=== PATIENT | female | born 1965 | race Caucasian/White ===

== ENCOUNTER → 2020-10-07 | Outpatient (CLI) | payer OTHER ==
[2020-10-07 07:17] LABS: CREATININE 0.9 mg/dL (0.6-1.3)
== END ==
LOC: M.LAB 06:50 → M.CT 08:00
PROVIDERS: ATTEND Internal Medicine Cardiovascular Disease
DX: Z01.812 Encounter for preprocedural laboratory examination (principal); K76.0 Fatty (change of) liver, not elsewhere classified; I28.1 Aneurysm of pulmonary artery; I10 Essential (primary) hypertension; Q23.1 Congenital insufficiency of aortic valve

== ENCOUNTER → 2020-10-23 | Outpatient (CLI) | payer OTHER ==
[2020-10-23] VITALS (16 sets, daily range): BP systolic 98–153; BP diastolic 58–111
[~2020-10-23] VITALS: Ht 157.5 cm; Wt 86.2 kg
[~2020-10-23] MED LIST: ADVAIR 100-501 EACH INH; LEXAPRO 10 MG T10 M1 PO; LOSARTAN-HCTZ1 EAC3 PO
--- NOTE | 2020-10-23 15:17 | TEE ---
[place] [id number] TRANSESOPHAGEAL ECHOCARDIOGRAM Name: ALE JHA Room: [facility]#: [id number] Admission: 10/23/20 Attend Phys: Gregory Estes, Discharge: Date of : 67 Date of Service: 10/23/20 1516 Report #: [id number] THIS REPORT FOR: cc: Nahed Gallegos MD, Sarah Beth MD Liston, Michael J. MD [facility] ~ APPROVED REPORT Study performed: 10/23/2020 12:25:17 EXAM: Transesophageal Echocardiogram Patient Location: Out-Patient Status: routine BSA: 1.87 HR: 66 bpm BP: 112/79 mmHg Rhythm: NSR Other Information Study Quality: Good Indications valvular murmur Echo Enhancing Agent Indication: Rule out Shunt Agent(s) / Amount(s) Used: Agitated Saline 10 cc Procedure After obtaining informed consent, patient underwent transesophageal echo in the [facility]. Type of Sedation : Conscious Sedation Sedation was administered by Laura Gamez RN. Sedation start time: 1232 Case end Time: 1251 Sedation was achieved intravenously with: Versed (3) Fentanyl (75) Transesophageal probe was inserted and advanced into esophagus without difficulty by Gregory Estes MD, FAC. Echo enhancement indication: R/O Septal defect. Echo enhancement agent administered: Agitated Saline The JESSICA was performed without complications. Throughout the procedure, the blood pressure, pulse oximetry, cardiac rhythm, and rate were monitored. The patient tolerated the procedure without adverse [place] [id number] TRANSESOPHAGEAL ECHOCARDIOGRAM Name: ABHIJEETALEKhadra ROTHMAN Room: [facility]#: [id number] Admission: 10/23/20 Attend Phys: Gregory Estes, Discharge: Date of : 67 Date of Service: 10/23/20 1516 Report #: [id number] from conscious sedation was uneventful and vital signs were stable. Left Ventricle The left ventricle is normal size. There is normal LV segmental wall motion. Moderate basal septal hypertrophy is present. Left ventricular systolic function is normal. LVEF is 65-70%. Right Ventricle The right ventricle is normal size. The right ventricular systolic function is normal. Atria The left atrium size is normal. No thrombus is visualized in the left atrium or appendage. The interatrial septum is intact with no evidence for an atrial septal defect. The right atrium size is normal. Aortic Valve The aortic valve is normal in structure. No aortic regurgitation is present. There is no aortic valvular stenosis. Mitral Valve The mitral valve is normal in structure. Trace mitral regurgitation. No evidence of mitral valve stenosis. Tricuspid Valve The tricuspid valve is normal in structure. There is no tricuspid valve regurgitation noted. Pulmonic Valve The pulmonary valve is normal in structure. There is no pulmonic valvular regurgitation. Great Vessels The aortic root is normal in size. Pericardium There is no pericardial effusion. <Conclusion> The left ventricle is normal size. Moderate basal septal hypertrophy is present. Left ventricular systolic function is normal. LVEF is 65-70%. There is normal LV [place] [id number] TRANSESOPHAGEAL ECHOCARDIOGRAM Name: ALE JHA Room: [facility]#: [id number] Admission: 10/23/20 Attend Phys: Gregory Estes, Discharge: Date of : 67 Date of Service: 10/23/201515 Report #: [id number] The interatrial septum is intact with no evidence for an atrial septal defect. The aortic valve is normal in structure. Trace mitral regurgitation. <ELECTRONICALLY SIGNED> By: Gregory Estes MD, FACC 10/23/20 1516 15 15 Gregory Estes MD, FACC /INF
== END | disposition home or self-care (01) ==
LOC: M.CL 10:07
PROVIDERS: ATTEND Internal Medicine Cardiovascular Disease
DX: R01.1 Cardiac murmur, unspecified (principal); I34.0 Nonrheumatic mitral (valve) insufficiency; I10 Essential (primary) hypertension; Z98.890 Other specified postprocedural states; Z79.899 Other long term (current) drug therapy

== ENCOUNTER → 2020-11-06 | Outpatient (CLI) | payer OTHER ==
[2020-11-06 16:04] LABS: ABSOLUTE BASOPHILS 0.1 thou/uL (0.0-0.2); ABSOLUTE EOSINOPHILS 0.4 thou/uL (0.0-0.7); ABSOLUTE LYMPHOCYTES 2.1 thou/uL (0.8-5.3); ABSOLUTE MONOCYTES 1.2 thou/uL (0.0-1.2); ABSOLUTE NEUTROPHILS 6.5 thou/uL (1.6-8.1); BASOPHILS 0.8 %; EOSINOPHILS 3.7 %; HEMATOCRIT 39.4 % (37.0-47.0); HEMOGLOBIN 13.5 gm/dL (12.0-15.0); LYMPHOCYTES 20.2 %; MCH 31.4 pg (26.0-34.0); MCHC 34.4 g/dL (28.0-37.0); MCV 91.4 fL (80.0-100.0); MONOCYTES 11.6 %; NUCLEATED RBCS 0 /100WBC; PLATELET COUNT* 294 thou/uL (150-400); POLYS 63.7 %; RBC 4.31 mil/uL (4.20-5.00); WBC 10.2 thou/uL (4.0-11.0)
[2020-11-06 16:12] LABS: ALBUMIN 3.7 g/dL (3.4-5.0); CALCIUM 8.8 mg/dL (8.5-10.1); MAGNESIUM 2.1 mg/dL (1.8-2.4); POTASSIUM 3.2 mmol/L (3.5-5.1); TOTAL BILIRUBIN 0.3 mg/dL (<0.1-1.0); TOTAL PROTEIN 7.2 g/dL (6.4-8.2)
[2020-11-07 21:06] LABS: ANA INTERPRETATION Negative (())
== END ==
LOC: M.LAB 15:36
PROVIDERS: ATTEND Internal Medicine Critical Care Medicine
DX: R06.02 Shortness of breath (principal); R91.8 Other nonspecific abnormal finding of lung field

== ENCOUNTER → 2020-11-21 | Outpatient (CLI) | payer OTHER ==
[2020-11-21 08:40] LABS: CALCIUM 8.8 mg/dL (8.5-10.1); POTASSIUM 3.8 mmol/L (3.5-5.1)
== END ==
LOC: M.LAB 08:15
PROVIDERS: ATTEND Nurse Practitioner
DX: I10 Essential (primary) hypertension (principal); E87.8 Other disorders of electrolyte and fluid balance, not elsewhere classified

== ENCOUNTER → 2021-02-02 | Outpatient (CLI) | payer OTHER | LOC: M.CT 01-27 11:00 | PROVIDERS: ATTEND Internal Medicine Critical Care Medicine | DX: R91.8 Other nonspecific abnormal finding of lung field (principal); R06.02 Shortness of breath; R93.89 Abnormal findings on diagnostic imaging of other specified body structures ==